=== PATIENT | male | born 1970 | race Asian ===

== ENCOUNTER 2018-05-02 15:00 | Emergency (ER) | payer OTHER ==
[~2018-05-02] VITALS: Ht 170.2 cm; Wt 86.2 kg
[2018-05-02 15:05] VITALS: BP_SYST 155
[2018-05-02] MEDS ORDERED: KETOROLAC TROMETHAMINE 60 MG/2 ML VIAL IM ONE (15:30)
[2018-05-02 15:41] LABS: BASOPHILS # (AUTO) 0.1 K/uL (0.0-0.2); EOSINOPHILS # (AUTO) 0.7 K/uL (0.0-0.4); EOSINOPHILS % (AUTO) 7.4 % (0.0-4.0); HEMATOCRIT 42.9 % (36-54); HEMOGLOBIN 13.3 g/dL (14.0-18.0); LYMPHOCYTES # (AUTO) 2.8 K/uL (1.0-5.5); LYMPHOCYTES % (AUTO) 28.6 % (20.5-51.5); MEAN CORPUSCULAR HEMOGLOBIN 23 pg (27-31); MEAN CORPUSCULAR HGB CONC 31 % (32-36); MEAN CORPUSCULAR VOLUME 75 fL (79.0-98.0); MONOCYTES # (AUTO) 0.8 K/uL (0.0-1.0); MONOCYTES % (AUTO) 8.4 % (1.7-9.3); NEUTROPHILS # (AUTO) 5.4 K/uL (1.8-7.7); NEUTROPHILS % (AUTO) 54.6 % (40.0-70.0); PLATELET COUNT (AUTO) 342 K/uL (130-430); RED BLOOD CELL COUNT(AUTO) 5.74 MIL/uL (4.2-6.2); RED CELL DISTRIBUTION WIDTH 13.1 % (9.0-15.0); WHITE BLOOD COUNT (AUTO) 9.8 K/uL (4.8-10.8)
[2018-05-02] MEDS ORDERED: IBUPROFEN 800 MG TABLET PO ONE (15:45)
[2018-05-02 15:48] LABS: CALCIUM 8.5 mg/dL (8.4-11.0); CREATININE 0.74 mg/dL (0.55-1.30); POTASSIUM 4.2 mmol/L (3.5-5.1)
[2018-05-02 15:50] LABS: URIC ACID 5.1 mg/dL (2.4-7.0)
[2018-05-02 16:39] VITALS: BP_SYST 138
== END 2018-05-02 16:39 | disposition home or self-care (01) ==
LOC: SED 15:00
DX: M25.532 Pain in left wrist (principal); R03.0 Elevated blood-pressure reading, without diagnosis of hypertension
CPT/HCPCS: 36415; 80048; 84550-TC; 85025; 99285; J1885

== ENCOUNTER 2019-02-20 08:56 | Outpatient (CLI) | payer OTHER ==
[2019-02-20 09:38] LABS: CALCIUM 9.3 mg/dL (8.4-11.0); CREATININE 0.8 mg/dL (0.55-1.30); POTASSIUM 4.2 mmol/L (3.5-5.1)
[2019-02-20 09:43] LABS: TOTAL BILIRUBIN 0.6 mg/dL (0.0-1.0)
[2019-02-23 02:15] LABS: PROSTATE SPECIFIC AG 0.4 ng/mL (0.0-4.0)
[2019-02-25 15:18] LABS: HEMOGLOBIN A1C 7.8 % (4.8-5.6)
== END 2019-02-20 21:08 | disposition home or self-care (01) ==
LOC: SLB 08:56
PROVIDERS: ATTEND Internal Medicine
DX: Z12.5 Encounter for screening for malignant neoplasm of prostate (principal); E11.8 Type 2 diabetes mellitus with unspecified complications; E78.5 Hyperlipidemia, unspecified; E55.9 Vitamin D deficiency, unspecified; R94.5 Abnormal results of liver function studies
CPT/HCPCS: 36415; 80053; 80061; 82306; 83036; 84153

== ENCOUNTER 2019-08-05 18:34 | Emergency (ER) | payer BC, OTHER ==
[~2019-08-05] VITALS: Ht 170.2 cm; Wt 86.2 kg
[2019-08-05 18:34] VITALS: BP_SYST 143
--- NOTE | 2019-08-05 18:38 | NUR ---
EKG DONE AND GIVEN TO DR SUE
[2019-08-05] MEDS ORDERED: ASPIRIN 81 MG TAB.CHEW PO ONE (18:45)
[2019-08-05 19:21] LABS: ANION GAP 8 (5-15); CALCIUM 9.1 mg/dL (8.4-11.0); CHLORIDE 102 mmol/L (98-107); CREATININE 0.85 mg/dL (0.55-1.30); GLUCOSE 243 mg/dL (70-99); POTASSIUM 3.8 mmol/L (3.5-5.1); SODIUM SERUM 139 mmol/L (136-145); UREA NITROGEN, BLOOD 11 mg/dL (8-21)
[2019-08-05 19:22] LABS: GFR AFRICAN AMERICAN 122 mL/min (>90)
[2019-08-05 19:28] LABS: BASOPHILS # (AUTO) 0.1 K/uL (0.0-0.2); BASOPHILS % (AUTO) 0.5 % (0.0-2.0); EOSINOPHILS # (AUTO) 0.5 K/uL (0.0-0.4); EOSINOPHILS % (AUTO) 4.4 % (0.0-4.0); HEMATOCRIT 41.7 % (36-54); HEMOGLOBIN 12.9 g/dL (14.0-18.0); LYMPHOCYTES # (AUTO) 3.2 K/uL (1.0-5.5); LYMPHOCYTES % (AUTO) 25.9 % (20.5-51.5); MEAN CORPUSCULAR HEMOGLOBIN 23 pg (27-31); MEAN CORPUSCULAR HGB CONC 31 % (32-36); MEAN CORPUSCULAR VOLUME 74 fL (79.0-98.0); NEUTROPHILS # (AUTO) 7.5 K/uL (1.8-7.7); NEUTROPHILS % (AUTO) 61.2 % (40.0-70.0); PLATELET COUNT (AUTO) 312 K/uL (130-430); RED BLOOD CELL COUNT(AUTO) 5.62 MIL/uL (4.2-6.2); WHITE BLOOD COUNT (AUTO) 12.3 K/uL (4.8-10.8)
--- NOTE | 2019-08-05 19:31 | NUR ---
Pt drove self to ER per own report. 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 Pt labs drawn, EKG performed, pt placed in position of comfort in ed bed 3. Pt denies any chest pain, nausea, vomiting, blurred vision, shortness of breath. Pt states he would like to have a full cardiac workup performed. Pt resting in position of comfort, in no apparent distress. Pt placed on BP, Pulse oximetry and EKG monitoring.Will continue to monitor
--- NOTE | 2019-08-05 19:31 | NUR ---
Patient to ER bed 03 to gown for evaluation. Side rails up.
[2019-08-05 19:33] LABS: ALANINE AMINOTRANSFERASE 73 U/L (12-78); ALBUMIN 3.5 g/dL (3.4-4.8); ASPARTATE AMINOTRANSFERASE 41 U/L (10-37); TOTAL BILIRUBIN 0.8 mg/dL (0.0-1.0)
--- NOTE | 2019-08-05 19:48 | NUR ---
Dr. Hagen bedside for Pt eval
--- NOTE | 2019-08-05 19:51 | NUR ---
Portable Xray bedside
--- NOTE | 2019-08-05 20:25 | NUR ---
Patient given written and verbal discharge instructions and verbalizes understanding. ER MD discussed with patient the results and treatment provided. Patient in stable condition. ID arm band removed. No Rx given. Patient educated to follow up with PMD or to return if symptoms persist. Pain Scale 0/10 Opportunity for questions provided and answered.
== END 2019-08-05 20:25 | disposition home or self-care (01) ==
LOC: SED 18:34
DX: R00.2 Palpitations (principal); E78.00 Pure hypercholesterolemia, unspecified; E11.9 Type 2 diabetes mellitus without complications; I10 Essential (primary) hypertension
CPT/HCPCS: 36415; 71045; 80053; 84484; 85025; 85379; 93005; 99284

== ENCOUNTER 2019-10-31 08:21 | Outpatient (CLI) | payer OTHER ==
[2019-10-31 09:22] LABS: CREATININE 0.9 mg/dL (0.55-1.30)
[2019-11-02 21:18] LABS: HEMOGLOBIN A1C 10.2 % (4.8-5.6)
== END 2019-10-31 19:28 | disposition home or self-care (01) ==
LOC: SLB 08:21
PROVIDERS: ATTEND Internal Medicine
DX: I10 Essential (primary) hypertension (principal); E11.8 Type 2 diabetes mellitus with unspecified complications; E78.5 Hyperlipidemia, unspecified; E55.9 Vitamin D deficiency, unspecified
CPT/HCPCS: 36415; 80053; 80061; 82306; 83036; 83540-TC; 83735-TC

== ENCOUNTER 2020-05-20 08:41 | Outpatient (CLI) | payer OTHER ==
[2020-05-20 09:27] LABS: CALCIUM 8.7 mg/dL (8.4-11.0); CREATININE 0.98 mg/dL (0.55-1.30); POTASSIUM 4.5 mmol/L (3.5-5.1); TOTAL BILIRUBIN 0.9 mg/dL (0.0-1.0)
== END 2020-05-20 21:16 | disposition home or self-care (01) ==
LOC: SLB 08:41
PROVIDERS: ATTEND Internal Medicine
DX: E11.9 Type 2 diabetes mellitus without complications (principal); E78.5 Hyperlipidemia, unspecified; E55.9 Vitamin D deficiency, unspecified
CPT/HCPCS: 36415; 80053; 80061; 82306; 83036

== ENCOUNTER 2020-08-26 08:26 | Outpatient (CLI) | payer OTHER ==
[2020-08-26 09:47] LABS: BASOPHILS # (AUTO) 0.1 K/uL (0.0-0.2); BASOPHILS % (AUTO) 1.1 % (0.0-2.0); EOSINOPHILS # (AUTO) 0.6 K/uL (0.0-0.4); EOSINOPHILS % (AUTO) 5.9 % (0.0-4.0); HEMOGLOBIN 13.9 g/dL (14.0-18.0); LYMPHOCYTES # (AUTO) 3.9 K/uL (1.0-5.5); LYMPHOCYTES % (AUTO) 35.7 % (20.5-51.5); MEAN CORPUSCULAR HEMOGLOBIN 23 pg (27-31); MEAN CORPUSCULAR HGB CONC 31 % (32-36); MEAN CORPUSCULAR VOLUME 74 fL (79.0-98.0); MONOCYTES # (AUTO) 0.8 K/uL (0.0-1.0); MONOCYTES % (AUTO) 7.3 % (1.7-9.3); NEUTROPHILS # (AUTO) 5.5 K/uL (1.8-7.7); PLATELET COUNT (AUTO) 332 K/uL (130-430); RED BLOOD CELL COUNT(AUTO) 6.08 MIL/uL (4.2-6.2); RED CELL DISTRIBUTION WIDTH 14.7 % (9.0-15.0)
[2020-08-26 09:55] LABS: BILIRUBIN,DIRECT 0.3 mg/dL (0.0-0.3); CALCIUM 9.1 mg/dL (8.4-11.0); CREATININE 1.01 mg/dL (0.55-1.30); POTASSIUM 4.7 mmol/L (3.5-5.1); TOTAL BILIRUBIN 1.2 mg/dL (0.0-1.0)
== END 2020-08-26 21:08 | disposition home or self-care (01) ==
LOC: SLB 08:26
PROVIDERS: ATTEND Internal Medicine
DX: I10 Essential (primary) hypertension (principal); E11.9 Type 2 diabetes mellitus without complications; E78.5 Hyperlipidemia, unspecified; E55.9 Vitamin D deficiency, unspecified; R94.4 Abnormal results of kidney function studies
CPT/HCPCS: 36415; 80053; 80061; 80076; 83036; 85025

== ENCOUNTER 2020-12-14 08:28 | Outpatient (CLI) | payer OTHER ==
[2020-12-14 09:33] LABS: ALBUMIN 3.9 g/dL (3.4-4.8); CALCIUM 8.5 mg/dL (8.4-11.0); CREATININE 0.98 mg/dL (0.55-1.30); POTASSIUM 4.2 mmol/L (3.5-5.1); TOTAL BILIRUBIN 1.2 mg/dL (0.0-1.0)
[2020-12-15 08:07] LABS: MICROALBUMIN URINE RANDOM 30.4 ug/mL (Not Estab.)
== END 2020-12-14 18:24 | disposition home or self-care (01) ==
LOC: SLB 08:28
PROVIDERS: ATTEND Internal Medicine
DX: Z12.5 Encounter for screening for malignant neoplasm of prostate (principal); D50.9 Iron deficiency anemia, unspecified; I10 Essential (primary) hypertension; E55.9 Vitamin D deficiency, unspecified; J30.2 Other seasonal allergic rhinitis; E88.09 Other disorders of plasma-protein metabolism, not elsewhere classified; E78.5 Hyperlipidemia, unspecified
CPT/HCPCS: 36415; 80053; 80061; 82043; 82306; 82570; 83036; 84153

== ENCOUNTER 2021-01-06 09:36 | Outpatient (CLI) | payer OTHER ==
[2021-01-06 10:42] LABS: BASOPHILS # (AUTO) 0.1 K/uL (0.0-0.2); BASOPHILS % (AUTO) 1.1 % (0.0-2.0); EOSINOPHILS # (AUTO) 0.8 K/uL (0.0-0.4); EOSINOPHILS % (AUTO) 8.1 % (0.0-4.0); HEMATOCRIT 45.2 % (36-54); HEMOGLOBIN 14.1 g/dL (14.0-18.0); LYMPHOCYTES # (AUTO) 2.8 K/uL (1.0-5.5); LYMPHOCYTES % (AUTO) 29.6 % (20.5-51.5); MEAN CORPUSCULAR HEMOGLOBIN 23 pg (27-31); MEAN CORPUSCULAR HGB CONC 31 % (32-36); MEAN CORPUSCULAR VOLUME 73 fL (79.0-98.0); MONOCYTES # (AUTO) 1.1 K/uL (0.0-1.0); MONOCYTES % (AUTO) 12.1 % (1.7-9.3); NEUTROPHILS # (AUTO) 4.6 K/uL (1.8-7.7); NEUTROPHILS % (AUTO) 49.1 % (40.0-70.0); PLATELET COUNT (AUTO) 297 K/uL (130-430); RED BLOOD CELL COUNT(AUTO) 6.21 MIL/uL (4.2-6.2); RED CELL DISTRIBUTION WIDTH 15.4 % (9.0-15.0); WHITE BLOOD COUNT (AUTO) 9.4 K/uL (4.8-10.8)
[2021-01-06 10:49] LABS: ALBUMIN 4.1 g/dL (3.4-4.8); CREATININE 0.98 mg/dL (0.55-1.30); POTASSIUM 4.9 mmol/L (3.5-5.1); TOTAL BILIRUBIN 1.2 mg/dL (0.0-1.0); TOTAL IRON BIND. CAPACITY 285 ug/dL (250-450)
[2021-01-07 08:06] LABS: KAPPA & LAMBDA LT CHAIN RATIO 1.25 (0.26-1.65)
[2021-01-07 09:06] LABS: FERRITIN 222 ng/mL (30-400); FOLATE (FOLIC ACID) 12.9 ng/mL (>3.0)
[2021-01-08 14:06] LABS: A/G RATIO 0.9 (0.7-1.7); ALBUMIN 3.6 g/dL (2.9-4.4); ALPHA-1-GLOBULIN 0.2 g/dL (0.0-0.4); ALPHA-2-GLOBULIN 0.8 g/dL (0.4-1.0); GAMMA GLOBULIN 1.7 g/dL (0.4-1.8); M-SPIKE Not Observed g/dL (Not Observed)
== END 2021-01-06 20:01 | disposition home or self-care (01) ==
LOC: SLB 09:36
PROVIDERS: ATTEND Internal Medicine
DX: E88.09 Other disorders of plasma-protein metabolism, not elsewhere classified (principal)
CPT/HCPCS: 36415; 80053; 82272; 82607; 82728; 82746; 83540-TC; 83550-TC; 84155; 84165; 85025

== ENCOUNTER 2021-02-10 08:12 | Outpatient (CLI) | payer OTHER | END 2021-02-10 19:10 | disposition home or self-care (01) | LOC: SRD 08:12 | PROVIDERS: ATTEND Internal Medicine | DX: M65.331 Trigger finger, right middle finger (principal) ==

== ENCOUNTER → 2021-03-31 | Outpatient (CLI) | payer OTHER ==
[2021-03-31 11:00] LABS: BASOPHILS # (AUTO) 0.1 K/uL (0.0-0.2); BASOPHILS % (AUTO) 0.9 % (0.0-2.0); EOSINOPHILS # (AUTO) 0.5 K/uL (0.0-0.4); EOSINOPHILS % (AUTO) 4.2 % (0.0-4.0); HEMATOCRIT 47.7 % (36-54); HEMOGLOBIN 14.8 g/dL (14.0-18.0); LYMPHOCYTES # (AUTO) 3.3 K/uL (1.0-5.5); LYMPHOCYTES % (AUTO) 28.9 % (20.5-51.5); MEAN CORPUSCULAR HEMOGLOBIN 23 pg (27-31); MEAN CORPUSCULAR HGB CONC 31 % (32-36); MEAN CORPUSCULAR VOLUME 73 fL (79.0-98.0); MONOCYTES # (AUTO) 1.1 K/uL (0.0-1.0); MONOCYTES % (AUTO) 9.4 % (1.7-9.3); NEUTROPHILS # (AUTO) 6.4 K/uL (1.8-7.7); NEUTROPHILS % (AUTO) 56.6 % (40.0-70.0); PLATELET COUNT (AUTO) 316 K/uL (130-430); RED BLOOD CELL COUNT(AUTO) 6.49 MIL/uL (4.2-6.2); WHITE BLOOD COUNT (AUTO) 11.3 K/uL (4.8-10.8)
[2021-03-31 11:04] LABS: BILIRUBIN,URINE NEGATIVE (NEGATIVE); CLARITY/URINE CLEAR (CLEAR); COLOR,URINE YELLOW (YELLOW); GLUCOSE,URINE 3+ (NEGATIVE); KETONES,URINE NEGATIVE (NEGATIVE); LEUKOCYTE ESTERASE ,URINE NEGATIVE (NEGATIVE); NITRITE, URINE NEGATIVE (NEGATIVE); PROTEIN URINE NEGATIVE (NEGATIVE); UROBILINOGEN,URINE 0.2 (0.2-1.0)
[2021-03-31 11:10] LABS: ALBUMIN 4.1 g/dL (3.4-4.8); CALCIUM 9.3 mg/dL (8.4-11.0); POTASSIUM 4.2 mmol/L (3.5-5.1); TOTAL BILIRUBIN 1.2 mg/dL (0.0-1.0)
[2021-03-31 11:23] LABS: BLOOD, URINE TRACE (NEGATIVE)
[2021-03-31 11:27] LABS: TOTAL IRON BIND. CAPACITY 283 ug/dL (250-450)
[2021-03-31 11:41] LABS: BACTERIA,URINE None Seen /HPF (None Seen); RBC,URINE 0-3 /HPF (0-3); TRICHOMONAS,URINE None Seen /HPF (None Seen); WBC,URINE NONE SEEN /HPF (0-3); YEAST,URINE None Seen /HPF (None Seen)
[2021-04-01 07:06] LABS: FOLATE (FOLIC ACID) 12.4 ng/mL (>3.0)
[2021-04-01 20:18] LABS: HEMOGLOBIN A1C 8.4 % (4.8-5.6)
== END | disposition home or self-care (01) ==
LOC: SLB 09:23
PROVIDERS: ATTEND Internal Medicine
DX: E11.9 Type 2 diabetes mellitus without complications (principal); I10 Essential (primary) hypertension; E78.5 Hyperlipidemia, unspecified; D53.9 Nutritional anemia, unspecified; R77.9 Abnormality of plasma protein, unspecified
CPT/HCPCS: 36415; 80053; 81000; 82272; 82607; 82728; 82746; 82784; 83036; 83540; 83550; 85025; 86334

== ENCOUNTER → 2021-07-02 | Outpatient (CLI) | payer OTHER | END | disposition home or self-care (01) | LOC: SUS 08:00 | PROVIDERS: ATTEND Specialist | DX: R16.0 Hepatomegaly, not elsewhere classified (principal); D53.9 Nutritional anemia, unspecified; R77.9 Abnormality of plasma protein, unspecified | CPT/HCPCS: 76700-TC ==

== ENCOUNTER 2021-07-07 10:12 | Outpatient (CLI) | payer OTHER ==
[2021-07-07 10:52] LABS: BASOPHILS # (AUTO) 0.1 K/uL (0.0-0.2); BASOPHILS % (AUTO) 0.8 % (0.0-2.0); EOSINOPHILS # (AUTO) 0.6 K/uL (0.0-0.4); EOSINOPHILS % (AUTO) 5.5 % (0.0-4.0); HEMATOCRIT 44.4 % (36-54); HEMOGLOBIN 13.9 g/dL (14.0-18.0); LYMPHOCYTES # (AUTO) 3.4 K/uL (1.0-5.5); LYMPHOCYTES % (AUTO) 32.9 % (20.5-51.5); MEAN CORPUSCULAR HEMOGLOBIN 23 pg (27-31); MEAN CORPUSCULAR HGB CONC 31 % (32-36); MEAN CORPUSCULAR VOLUME 73 fL (79.0-98.0); MONOCYTES # (AUTO) 0.8 K/uL (0.0-1.0); MONOCYTES % (AUTO) 8.2 % (1.7-9.3); NEUTROPHILS # (AUTO) 5.4 K/uL (1.8-7.7); NEUTROPHILS % (AUTO) 52.6 % (40.0-70.0); PLATELET COUNT (AUTO) 296 K/uL (130-430); RED BLOOD CELL COUNT(AUTO) 6.12 MIL/uL (4.2-6.2); RED CELL DISTRIBUTION WIDTH 15.4 % (9.0-15.0); WHITE BLOOD COUNT (AUTO) 10.2 K/uL (4.8-10.8)
[2021-07-07 11:15] LABS: ALBUMIN 3.9 g/dL (3.4-4.8); BILIRUBIN,DIRECT 0.2 mg/dL (0.0-0.3); TOTAL BILIRUBIN 1.3 mg/dL (0.0-1.0)
== END 2021-07-07 13:45 | disposition home or self-care (01) ==
LOC: SLB 10:12
PROVIDERS: ATTEND Specialist
DX: D53.9 Nutritional anemia, unspecified (principal); R77.9 Abnormality of plasma protein, unspecified
CPT/HCPCS: 36415; 80076; 85025

== ENCOUNTER 2021-07-28 11:02 | Outpatient (CLI) | payer OTHER ==
[2021-07-28 12:11] LABS: ALBUMIN 3.8 g/dL (3.4-4.8); BILIRUBIN,DIRECT 0.3 mg/dL (0.0-0.3); CREATININE 0.94 mg/dL (0.55-1.30); POTASSIUM 4.4 mmol/L (3.5-5.1); TOTAL BILIRUBIN 1.3 mg/dL (0.0-1.0)
== END 2021-07-28 21:41 | disposition home or self-care (01) ==
LOC: SLB 11:02
PROVIDERS: ATTEND Internal Medicine
DX: E11.9 Type 2 diabetes mellitus without complications (principal); I10 Essential (primary) hypertension; D50.9 Iron deficiency anemia, unspecified; E78.5 Hyperlipidemia, unspecified
CPT/HCPCS: 36415; 80053; 80061; 82248; 83036

== ENCOUNTER 2021-12-06 09:10 | Outpatient (CLI) | payer OTHER ==
[2021-12-06 10:24] LABS: ALBUMIN 3.9 g/dL (3.4-4.8); CALCIUM 8.4 mg/dL (8.4-11.0); CREATININE 0.8 mg/dL (0.55-1.30); POTASSIUM 4.5 mmol/L (3.5-5.1); TOTAL BILIRUBIN 1.1 mg/dL (0.0-1.0)
[2021-12-06 10:25] LABS: URIC ACID 5.7 mg/dL (2.4-7.0)
== END 2021-12-06 20:33 | disposition home or self-care (01) ==
LOC: SLB 09:10
PROVIDERS: ATTEND Internal Medicine
DX: Z12.5 Encounter for screening for malignant neoplasm of prostate (principal); E11.9 Type 2 diabetes mellitus without complications; I10 Essential (primary) hypertension; K76.0 Fatty (change of) liver, not elsewhere classified; K80.20 Calculus of gallbladder without cholecystitis without obstruction; R53.83 Other fatigue
CPT/HCPCS: 36415; 80053; 80061; 82043; 82570; 83036; 84153; 84550

== ENCOUNTER 2022-05-23 18:26 | Emergency (ER) | payer OTHER ==
[~2022-05-23] VITALS: Ht 170.2 cm; Wt 84.8 kg
[2022-05-23 18:28] VITALS: BP_SYST 112
[2022-05-23] MEDS ORDERED: NIRM1TAB PO (18:56)
[2022-05-23 19:23] VITALS: BP_SYST 112
== END 2022-05-23 19:23 | disposition home or self-care (01) ==
LOC: SED 18:26
DX: U07.1 COVID-19 (principal); I10 Essential (primary) hypertension; E11.9 Type 2 diabetes mellitus without complications; Z79.899 Other long term (current) drug therapy
CPT/HCPCS: 99283

== ENCOUNTER → 2022-07-13 | Outpatient (CLI) | payer OTHER ==
[~2022-07-13] MED LIST: NIRM1TAB PO
[2022-07-13 10:25] LABS: BASOPHILS # (AUTO) 0.1 K/uL (0.0-0.2); BASOPHILS % (AUTO) 0.9 % (0.0-2.0); EOSINOPHILS # (AUTO) 0.5 K/uL (0.0-0.4); EOSINOPHILS % (AUTO) 4.4 % (0.0-4.0); HEMATOCRIT 46.5 % (36-54); HEMOGLOBIN 14.8 g/dL (14.0-18.0); LYMPHOCYTES # (AUTO) 2.9 K/uL (1.0-5.5); LYMPHOCYTES % (AUTO) 28.8 % (20.5-51.5); MEAN CORPUSCULAR HEMOGLOBIN 23 pg (27-31); MEAN CORPUSCULAR HGB CONC 32 % (32-36); MEAN CORPUSCULAR VOLUME 71 fL (79.0-98.0); MONOCYTES # (AUTO) 0.8 K/uL (0.0-1.0); MONOCYTES % (AUTO) 8.1 % (1.7-9.3); NEUTROPHILS # (AUTO) 5.9 K/uL (1.8-7.7); NEUTROPHILS % (AUTO) 57.8 % (40.0-70.0); PLATELET COUNT (AUTO) 281 K/uL (130-430); RED BLOOD CELL COUNT(AUTO) 6.54 MIL/uL (4.2-6.2); RED CELL DISTRIBUTION WIDTH 15.1 % (9.0-15.0); WHITE BLOOD COUNT (AUTO) 10.2 K/uL (4.8-10.8)
[2022-07-13 10:43] LABS: ALBUMIN 4.4 g/dL (3.4-4.8); CREATININE 0.89 mg/dL (0.55-1.30); POTASSIUM 4.5 mmol/L (3.5-5.1); TOTAL BILIRUBIN 1.1 mg/dL (0.0-1.0)
[2022-07-13 10:54] LABS: CALCIUM 8.9 mg/dL (8.4-11.0)
== END | disposition home or self-care (01) ==
LOC: SLB 09:51
PROVIDERS: ATTEND Internal Medicine
DX: E11.65 Type 2 diabetes mellitus with hyperglycemia (principal); I10 Essential (primary) hypertension; D56.0 Alpha thalassemia; E78.5 Hyperlipidemia, unspecified; E55.9 Vitamin D deficiency, unspecified; R77.8 Other specified abnormalities of plasma proteins; Z79.4 Long term (current) use of insulin; Z68.30 Body mass index [BMI] 30.0-30.9, adult
CPT/HCPCS: 36415; 80053; 80061; 82306; 83036; 85025

== ENCOUNTER 2022-12-07 08:33 | Outpatient (CLI) | payer OTHER ==
[2022-12-07 10:54] LABS: CALCIUM 8.9 mg/dL (8.4-11.0); CREATININE 0.77 mg/dL (0.55-1.30); TOTAL BILIRUBIN 0.6 mg/dL (0.0-1.0)
[2022-12-09 09:00] LABS: HEMOGLOBIN A1C 8.1 % (4.8-5.6)
[2022-12-10 11:33] LABS: CREATININE, URINE 98.2 mg/dL; MICROALBUMIN URINE RANDOM 75.6 ug/ml (NOT ESTABLISHED)
== END 2022-12-07 17:27 | disposition home or self-care (01) ==
LOC: SLB 08:33
PROVIDERS: ATTEND Internal Medicine
DX: I10 Essential (primary) hypertension (principal); E11.9 Type 2 diabetes mellitus without complications; E78.5 Hyperlipidemia, unspecified; G47.33 Obstructive sleep apnea (adult) (pediatric); E55.9 Vitamin D deficiency, unspecified; D47.2 Monoclonal gammopathy; D56.3 Thalassemia minor
CPT/HCPCS: 36415; 80053; 80061; 82043; 82306; 82570; 82607; 83036

== ENCOUNTER → 2023-03-15 | Outpatient (CLI) | payer OTHER ==
[2023-03-15 11:09] LABS: ALBUMIN 4.3 g/dL (3.4-4.8); CALCIUM 9.3 mg/dL (8.4-11.0); CREATININE 0.93 mg/dL (0.55-1.30)
[2023-03-17 05:07] LABS: FREE PSA 0.08 ng/mL; PROSTATE SPECIFIC AG TOTAL 0.2 ng/mL (0.0-4.0)
[2023-03-17 09:06] LABS: IMMUNOGLOBULIN G, SERUM 1780 mg/dL (603-1613); IMMUNOGLOBULIN M, SERUM 48 mg/dL (20-172)
[2023-03-17 16:06] LABS: A/G RATIO 0.8 (0.7-1.7); ALBUMIN 3.8 g/dL (2.9-4.4); ALPHA-1-GLOBULIN 0.2 g/dL (0.0-0.4); ALPHA-2-GLOBULIN 0.9 g/dL (0.4-1.0); BETA GLOBULIN 1.5 g/dL (0.7-1.3); GAMMA GLOBULIN 1.8 g/dL (0.4-1.8); GLOBULIN, TOTAL 4.5 g/dL (2.2-3.9); M-SPIKE Not Observed g/dL (Not Observed)
== END | disposition home or self-care (01) ==
LOC: SLB 09:03
PROVIDERS: ATTEND Internal Medicine
DX: I10 Essential (primary) hypertension (principal); E11.9 Type 2 diabetes mellitus without complications; E78.5 Hyperlipidemia, unspecified
CPT/HCPCS: 36415; 80053; 80061; 82306; 82784; 83037; 84153; 84155; 84165

== ENCOUNTER 2024-06-12 00:56 | Emergency (ER) | payer OTHER ==
[~2024-06-12] VITALS: Ht 170.2 cm; Wt 86.2 kg
[2024-06-12 01:08] VITALS: BP_SYST 131; PULSE 83; RESP 18; TEMP 98.1; O2SAT 99
[2024-06-12] MEDS: AMOXICILLIN/POTASSIUM CLAV 875 MG TABLET PO ONE (01:54)
[2024-06-12] MEDS: KETOROLAC TROMETHAMINE 30 MG VIAL IM ONE (01:56)
[2024-06-12] MEDS ORDERED: IBUP-1969 PO (02:06)
[2024-06-12] MEDS ORDERED: BENZ9GEL3 MM (02:08)
[2024-06-12 02:22] VITALS: BP_SYST 131; PULSE 83; RESP 18; TEMP 98.1; O2SAT 99
[2024-06-12] MEDS ORDERED: AUG875 PO (02:34)
== END 2024-06-12 02:23 | disposition home or self-care (01) ==
LOC: SED 00:56
DX: K04.7 Periapical abscess without sinus (principal); K08.89 Other specified disorders of teeth and supporting structures; I10 Essential (primary) hypertension; E11.9 Type 2 diabetes mellitus without complications; Z79.899 Other long term (current) drug therapy; Z79.2 Long term (current) use of antibiotics
CPT/HCPCS: 99283; 96372; J1885